=== PATIENT | female | born 1990 | race Caucasian/White ===

== ENCOUNTER → 2016-09-07 | Outpatient (CLI) | payer OTHER ==
[2016-09-07 13:30] LABS: CHCM 36.6; HCT 35.4 % (34.0-46.0); HDW 3.04; HGB 12.5 gm/dL (11.4-16.0); MCH 31.1 pg (25.0-35.0); MCHC 35.3 g/dL (31.0-37.0); MCV 87.9 fL (80.0-100.0); RBC 4.02 m/uL (3.80-5.40); RDW 12.8 % (11.5-15.5); WBC 8.4 k/uL (3.8-10.6)
[2016-09-07 13:59] LABS: Glucose 80 mg/dL (74-99); Non-African American GFR(MDRD) >60 (>60 ml/min/1.73 sqM)
--- NOTE | 2016-09-07 14:23 | US ---
EXAMINATION TYPE: US OB >= 14 wk fetus DATE OF EXAM: 09/07/2016 1:27 PM COMPARISON: None CLINICAL HISTORY: CONFIRM DATES Z36 TECHNIQUE: OBTA GESTATIONAL AGE / DATING Physician Established: not established Dates by LMP: (14 weeks/5 days) EDC: 03/03/2017 Dates by First Scan: [facility] Dates by Current Scan: (14 weeks/5 days) EDC: 02/28/2017 SURVEY IUP: Single PLACENTA: Posterior PREVIA: Marginal to complete previa, after voiding appears more marginal JUSTUS: 12.2 cm Normal CERVICAL LENGTH (transabdominal: norm > 3.0cm): 3.4 cm BIOMETRY PRESENTATION: Vertex LIE: Longitudinal BPD: 2.9 cm 15 weeks / 3 days HC: 10.9 cm 15 weeks / 2 days AC: 8.5 cm 14 weeks / 6 days FL: 1.6 cm 14 weeks / 6 days ESTIMATED WEIGHT IN GRAMS: 109 grams ESTIMATED WEIGHT IN LBS/OZS: 0 lbs. 4 oz. WEIGHT PERCENTAGE BASED ON ESTABLISHED DATES: 50% HC/AC: 1.3 Normal FL/AC: 19.4 Normal HEART RATE: 145 bpm RHYTHM: Normal IMPRESSION: Single viable intrauterine corresponding to ultrasound age 15 weeks 1 day with estimated da te of delivery one February 2017 by today's exam, the mid survey
[2016-09-07 14:29] LABS: Hepatitis B Surface Ag Index 0.06
[2016-09-08 06:53] LABS: Toxoplasma Antibody (IgG) <3.0 IU/mL (<7.2)
[2016-09-08 07:18] LABS: HIV-1/HIV-2 Ab Screen NONREAC (NON REAC)
== END | disposition home or self-care (01) ==
LOC: RADUSWWP 12:25
PROVIDERS: ATTEND Obstetrics & Gynecology
DX: Z36 Encounter for antenatal screening of mother (principal); O26.812 Pregnancy related exhaustion and fatigue, second trimester; Z3A.15 15 weeks gestation of pregnancy
CPT/HCPCS: 36415; 76805; 82565; 82947; 85027; 86762; 86777; 86778; 86780; 86850; 86900; 86901; 87340; 87389

== ENCOUNTER 2016-11-25 22:20 | Outpatient (CLI) | payer OTHER ==
[2016-11-25 22:52] LABS: Appearance,Urine Cloudy (Clear); Bacteria,Urine Many /hpf; Bilirubin,Urine Negative (Negative); Glucose,Urine (UA) Negative (Negative); Ketones,Urine Negative (Negative); Leukocyte Esterase,Urine Large (Negative); Nitrite,Urine Positive (Negative); PH, Urine 6.5 (5.0-8.0); Particle Count 8890; Protein,Urine Trace (Negative); RBC,Urine 10 /hpf (0-5); Specific Gravity,Urine 1.006 (1.001-1.035); Squamous Epithelial Cell,Urine 2 /hpf (0-4); UA Billing (MACRO vs. MICRO) MICRO; Urobilinogen,Urine <2.0 mg/dL (<2.0); WBC,Urine >182 /hpf (0-5)
[2016-11-25 23:04] VITALS: BP 119/82; PULSE 130; RESP 18; TEMP 98.6
[2016-11-25] MEDS: LACTATED RINGERS 1,000 ML IV SCH (23:30)
[2016-11-25 23:41] LABS: Basophils % (A) 0 %; CH 32.2; CHCM 35.6; Eosinophils % (A) 0 %; HCT 32.7 % (34.0-46.0); HDW 3.04; HGB 11.3 gm/dL (11.4-16.0); Luc % (Auto) 2; Lymphocytes # (A) 0.8 k/uL (1.0-4.8); Lymphocytes % (A) 7 %; MCH 31.5 pg (25.0-35.0); MCHC 34.6 g/dL (31.0-37.0); MCV 91.1 fL (80.0-100.0); Mean Platelet Volume 7.6; Monocytes # (A) 0.5 k/uL (0-1.0); Monocytes % (A) 4 %; Neutrophils # (A) 10.7 k/uL (1.3-7.7); Neutrophils % (A) 87 %; RDW 14.5 % (11.5-15.5); WBC 12.3 k/uL (3.8-10.6)
[2016-11-26] MEDS: LACTATED RINGERS 1,000 ML IV SCH (00:03)
--- NOTE | 2016-11-26 19:39 | P.MSEPDOC ---
Presenting Problems - Arrival Data Date of Arrival on Unit: 11/25/16 Time of Arrival on Unit: 22:16 Mode of Transport: Ambulatory - Complaint OB-Reason for Admission/Chief Complaint: Signs/Symptoms UTI Medical History - Information : 1 Para: 1 Term: 1 : 0 Abortions: Spontaneous or Elective: 0 Number of Living Children: 1 - Gestational Age Expected Date of Delivery: 02/28/17 Gestational Age by SALIMA (wks/days): 26 Weeks and 4 Days Review of Systems - Review of Systems Constitutional: No problems Breast: No problems ENT: No problems Cardiovascular: No problems Respiratory: No problems Gastrointestinal: No problems Genitourinary: Urgency, Increased frequency Musculoskeletal: No problems Neurological: No problems Skin: No problems Vital Signs - Temperature Temperature: 98.6 F Temperature Source: Oral - Pulse Pulse Oximetery Pulse Rate: 130 Pulse Assessment Method: Pulse Oximetry - Respirations Respiratory Rate: 18 Oxygen Delivery Method: Room Air O2 Sat by Pulse Oximetry: 100 - Blood Pressure Right Arm Blood Pressure: 119/82 Blood Pressure Mean: 94 Blood Pressure Source: Automatic Cuff Medical Screen Scoring (Pre) - Cervical Exam Dilation: Exam Deferred Effacement: Exam Deferred Membranes: Intact - Uterine Contractions Frequency: N/A Duration: N/A Intensity: N/A - Maternal Vital Signs Maternal Temperature: N/A Maternal Blood Pressure: N/A Signs of Preeclampsia: N/A Maternal Respirations: N/A - Maternal Trauma Maternal Trauma: N/A - Assessment Baseline FHR: 150 Heart Rate - NICHD Category: Category I (Normal) = 0 NST: Reactive Position: N/A Station: N/A - Total Score Total Score (Pre): 0 - Level of Risk Level of Risk: Low (0-5) Physician Notification (Pre) - Physician Notified Physician Notified Date: 11/25/16 Physician Notified Time: 23:04 Physician/Practitioner Notifed:: Dr Joao Watson Order Received: Yes - Notification Comment Comment: Obtain CBC, start IV LR and give fluid bolus. Medical Screen Scoring (Post) - Cervical Exam Dilation: Exam Deferred Effacement: Exam Deferred Membranes: Intact - Uterine Contractions Frequency: N/A Duration: N/A Intensity: N/A - Maternal Vital Signs Maternal Temperature: N/A Maternal Blood Pressure: N/A Signs of Preeclampsia: N/A Maternal Respirations: N/A - Maternal Trauma Maternal Trauma: N/A - Assessment Heart Rate: 150 Heart Rate - NICHD Category: Category I (Normal) = 0 NST: Reactive Position: N/A Station: N/A - Total Score Total Score (Post): 0 - Post Treatment Level of Risk Post Treatment Level of Risk: Low (0-5) Disposition - Disposition OB Disposition: Discharge to home Discharge Date: 11/26/16 Discharge Time: 00:39 I agree with the RN Medical Screening Exam: Yes Risk & Benefit of care provided described in d/c instruction: Yes Diagnosis: UNSP INFCT OF URINARY TRACT IN , SECOND TRIMESTER
== END 2016-11-26 00:42 | disposition home or self-care (01) ==
LOC: FBPOP 22:20
PROVIDERS: ATTEND Obstetrics & Gynecology
DX: O23.42 Unspecified infection of urinary tract in pregnancy, second trimester (principal); Z3A.26 26 weeks gestation of pregnancy
CPT/HCPCS: 96360; 85025; 81001; 87086; 87077; 87186; G0463; 99214

== ENCOUNTER 2017-03-08 07:12 | Inpatient (IN) | payer OTHER ==
[2017-03-08] MEDS ORDERED: CARBOPROST TROMETHAMINE 250 MCG/ML 1 ML AMP IM PRN (07:36)
[2017-03-08] MEDS ORDERED: METHYLERGONOVINE 0.2 MG/ML 1 ML AMP IM PRN (07:36)
[2017-03-08] MEDS ORDERED: OXYTOCIN 10 UNIT/ML 1 ML VIAL IM PRN (07:36)
[2017-03-08] MEDS ORDERED: LIDOCAINE 1% (PF) 10 MG/ML (30 ML SDV) SQ PRN (07:36)
[2017-03-08] MEDS ORDERED: TERBUTALINE 1 MG/ML VIAL SQ PRN (07:36)
[2017-03-08] MEDS ORDERED: LACTATED RINGERS 1,000 ML IV SCH (07:45)
[2017-03-08] MEDS ORDERED: OXYTOCIN 20 UNITS/1000 ML NS 1,000 ML IV SCH (07:45)
[2017-03-08] MEDS ORDERED: fentaNYL (PF) 50 MCG/ML 5 ML AMP ONE (08:00)
[2017-03-08] MEDS ORDERED: BUPIVACAINE (PF) 0.25% 30 ML VIAL ONE (08:00)
[2017-03-08] MEDS ORDERED: SODIUM CHLORIDE 0.9% 100 ML BAG ONE (08:00)
[2017-03-08 08:07] LABS: Basophils % (A) 0 %; CH 31.1; CHCM 34.8; Eosinophils # (A) 0.1 k/uL (0-0.7); Eosinophils % (A) 0 %; HCT 40.8 % (34.0-46.0); HDW 3.15; HGB 13.8 gm/dL (11.4-16.0); Luc # (Auto) 0.24; Luc % (Auto) 1; Lymphocytes # (A) 1.6 k/uL (1.0-4.8); Lymphocytes % (A) 9 %; MCH 30.3 pg (25.0-35.0); MCHC 33.8 g/dL (31.0-37.0); MCV 89.7 fL (80.0-100.0); Mean Platelet Volume 8.3; Monocytes # (A) 0.6 k/uL (0-1.0); Monocytes % (A) 3 %; Neutrophils # (A) 15.5 k/uL (1.3-7.7); Neutrophils % (A) 86 %; RBC 4.55 m/uL (3.80-5.40); RDW 14.4 % (11.5-15.5); WBC (Perox) 17.41
[2017-03-08] MEDS: LACTATED RINGERS 1,000 ML IV SCH ×2 (08:31→22:11)
[2017-03-08 09:08] VITALS: BMI 23.8
[2017-03-08] MEDS ORDERED: BENZOCAINE/MENTHOL SPRAY 1 GM/SPRAY AEROSOL TOPICAL PRN ×2 (11:08→11:52)
[2017-03-08] MEDS ORDERED: IBUPROFEN 600 MG TAB PO PRN (11:08)
[2017-03-08] MEDS ORDERED: diphenhydrAMINE 50 MG/ML 1 ML VIAL IVP PRN ×4 (11:08→11:52)
[2017-03-08] MEDS ORDERED: ACETAMINOPHEN TAB 325 MG TAB PO PRN ×2 (11:08→11:52)
[2017-03-08] MEDS ORDERED: SIMETHICONE 80 MG CHEWABLE PO PRN ×2 (11:08→11:52)
[2017-03-08] MEDS ORDERED: ZOLPIDEM 5 MG TAB PO PRN ×2 (11:08→11:52)
[2017-03-08] MEDS ORDERED: LANOLIN CREAM 5 GM TUBE TOPICAL PRN ×2 (11:08→11:52)
[2017-03-08] MEDS ORDERED: WITCH HAZEL 1 EACH MED..PAD TOPICAL PRN ×2 (11:08→11:52)
[2017-03-08] MEDS ORDERED: HYDROCORTISONE 2.5% RECTAL CREAM 30 GM TUBE RECTAL PRN ×2 (11:08→11:52)
[2017-03-08] MEDS ORDERED: diphenhydrAMINE 50 MG CAP PO PRN ×2 (11:08→11:52)
[2017-03-08] MEDS ORDERED: MEASLES-MUMPS-RUBELLA VACC/PF 12,500 UNIT/0.5 ML VIAL SQ ONE (11:08)
[2017-03-08] MEDS ORDERED: diphenhydrAMINE 25 MG CAP PO PRN ×2 (11:08→11:52)
--- NOTE | 2017-03-08 11:12 | P.HPOB ---
History of Present Illness H&P Date: 03/08/17 Steffi is a 18-year-old at 40 weeks gestation arrives in active labor. She is garcia every 2 minutes and she is making cervical change. At this time she is 40 cm dilated her percent effaced -2 station. Her course was, K by a grade 3 placenta but otherwise she had no other significant problems with the area and she is watched with nonstress tests through the latter part of the due to same. Pertinent labs include O + blood type Rh and it was negative. Rubella was nonimmune, hepatitis B surface antigen and RPR as well as HIV were all negative. On physical exam this is a well-developed well-nourished female whose HEENT is unremarkable. Heart regular, lungs clear, extremities without pain. Abdomen is soft gravid uterus is noted. heart tones in the 130s to 140s and have been reactive. It is noted that during the labor process she did have spontaneous rupture membranes and thick meconium is noted therefore anesthesia will be present at the time of delivery. She plans epidural for analgesia. Assessment intrauterine at term. Plan expect spontaneous vaginal delivery. Past Medical History Past Medical History: No Reported History History of Any Multi-Drug Resistant Organisms: None Reported Additional Past Surgical History / Comment(s): ovarian cyst removed, benign tumor on foot Past Anesthesia/Blood Transfusion Reactions: Postoperative Nausea & Vomiting ( PONV) Past Psychological History: No Psychological Hx Reported Smoking Status: Never smoker Past Alcohol Use History: None Reported Past Drug Use History: None Reported - Past Family History Father History Unknown: Yes Medications and Allergies Home Medications Medication Instructions Recorded Confirmed Type Pnv No.95/Ferrous Fum/Folic AC 1 tab PO DAILY 11/25/16 03/08/17 History [ Multivitamin Tablet] Allergies Allergy/AdvReac Type Severity Reaction Status Date / Time Penicillins Allergy Unknown Verified 03/08/17 07:34 Childhood Exam Osteopathic Statement: *. No significant issues noted on an osteopathic structural exam other than those noted in the History and Physical/Consult. - Vital Signs Vital signs: Vital Signs Temp Pulse Resp BP 03/08/17 07:34 97.2 F L 82 18 129/82 Intake and Output 03/07/17 03/08/17 03/08/17 22:59 06:59 14:59 Other: # Voids 1 Weight 58.967 kg Patient Weight 11/10/17 06:59 Weight 58.967 kg Results Result Diagrams: 03/08/17 07:40 Abnormal Lab Results - Last 24 Hours (Table) 03/08/17 Range/Units 07:40 WBC 18.0 H (3.8-10.6) k/uL Neutrophils # 15.5 H (1.3-7.7) k/uL
--- NOTE | 2017-03-08 11:13 | P.PROBDLV ---
Vaginal Delivery Note - . Vaginal Delivery Note: Patient progressed to complete and pushing with spontaneous vaginal delivery of a viable male over an intact perineum. Following delivery of the head the head did retract back on the perineum indicating likely shoulder dystocia with gentle Downward traction and Lauren was to dislodge the anterior shoulder from below the pubic symphysis. Therefore did go into the vagina and grasped under the right axilla as the baby was delivered from right occiput anterior position. Once I was able to grasp onto the axilla I was able to rotate the baby slightly clockwise fashion allowing for the anterior shoulder dislodged there was a nuchal cord 1 noted this point the baby was delivered through the nuchal cord. Once baby was delivered thorough bulb suction of mouth and nares was completed and baby was then placed on mother's abdomen where the umbilical cord was clamped and cut in usual fashion and handed over to nursery personnel with anesthesia present. Placenta was then delivered intact and Pitocin was added to the IV. scores and weight are both pending at this time but both mother and baby currently appear stable following delivery.
[2017-03-08] MEDS: IBUPROFEN 600 MG TAB PO PRN (12:35)
[2017-03-08] MEDS ORDERED: INFLUENZA VACCINE (6 MOS+) 60 MCG/0.5 ML SYRINGE IM ONE (13:46)
[2017-03-08] MEDS: Acetaminophen-Codeine 300-30mg TAB PO PRN ×2 (15:57→21:14)
[2017-03-08] MEDS ORDERED: SENNOSIDES-DOCUSATE SODIUM 1 EACH TAB PO SCH (20:00)
[2017-03-08] MEDS: SENNOSIDES-DOCUSATE SODIUM 1 EACH TAB PO SCH (21:13)
[2017-03-09] MEDS: Acetaminophen-Codeine 300-30mg TAB PO PRN ×3 (07:00→20:00)
--- NOTE | 2017-03-09 08:53 | P.DS ---
Providers Date of admission: 03/08/17 07:31 Expected date of discharge: 03/09/17 Attending physician: Shimon Zimmerman [facility] Course: Steffi is doing very well post day 1. She is ambulating, voiding, and she is tolerating her diet. She voices no complaints. Vital signs are stable and afebrile. Heart regular, lungs clear, extremities without pain. Abdomen is soft uterus is firm and lochia is reported to be light. Assessment day 1. Plan discharged home follow up with me in 6 weeks. Prescription for Tylenol No. 3 and Motrin have been provided and all questions are answered. Discharge instructions thoroughly reviewed. Patient Condition at Discharge: Good Plan - Discharge Summary New Discharge Prescriptions: New Acetaminophen-Codeine 300-30mg [Tylenol #3] 1 tab PO Q4H PRN #30 tablet PRN Reason: Pain Ibuprofen [Motrin] 600 mg PO Q6HR PRN #30 tab PRN Reason: Pain No Action Pnv No.95/Ferrous Fum/Folic AC [ Multivitamin Tablet] 1 tab PO DAILY Discharge Medication List Pnv No.95/Ferrous Fum/Folic AC [ Multivitamin Tablet] 1 tab PO DAILY [History] Acetaminophen-Codeine 300-30mg [Tylenol #3] 1 tab PO Q4H PRN #30 tablet [Rx] Ibuprofen [Motrin] 600 mg PO Q6HR PRN #30 tab 03/09/17 [Rx] Follow up Appointment(s)/Referral(s): Shimon Zimmerman DO [Doctor of Osteopathic Medicine] - 6 Weeks Activity/Diet/Wound Care/Special Instructions: Pelvic rest, no heavy lifting, limit stairs and driving. If any high temperatures, heavy bleeding, or severe pain call my office Discharge Disposition: HOME SELF-CARE
[2017-03-09] MEDS: IBUPROFEN 600 MG TAB PO PRN ×2 (10:38→17:18)
[2017-03-09] MEDS: SENNOSIDES-DOCUSATE SODIUM 1 EACH TAB PO SCH ×2 (10:38→20:55)
--- NOTE | 2017-03-10 07:16 | P.PNOBGVD ---
Subjective - Subjective Patient reports: Reports appetite normal, Reports voiding normally, Reports pain well controlled, Reports ambulating normally : doing well Objective - Latest Vital Signs Latest vital signs: Vital Signs Temp Pulse Resp BP 03/10/17 00:00 98 F 67 15 115/76 03/09/17 15:47 97.9 F 71 17 112/81 03/09/17 14:07 98.6 F 73 16 122/71 03/09/17 09:00 98.3 F 80 16 114/65 03/09/17 08:52 80 16 - Exam Lungs: bilateral: normal Chest: Normal S1, Normal S2 Extremities: Present: normal Abdomen: Present: normal appearance, soft Uterus: Present: normal, firm Assessment and Plan Assessment: This is day #2. Patient was going to go home yesterday but decided to stay because her baby needed to be admitted for observation due to possible aspiration following his circumcision. Both are doing better today and patient is felt to be stable for discharge home. She'll follow-up with Dr. Zimmerman as scheduled in 6 weeks. (1) Vaginal delivery Current Visit: Yes Status: Acute Code(s): O80 - ENCOUNTER FOR FULL-TERM UNCOMPLICATED DELIVERY SNOMED Code(s): 140407393
[2017-03-10] MEDS: Acetaminophen-Codeine 300-30mg TAB PO PRN ×3 (08:59→18:33)
[2017-03-10] MEDS: SENNOSIDES-DOCUSATE SODIUM 1 EACH TAB PO SCH (11:01)
[2017-03-10 17:22] VITALS: BP 115/72; PULSE 82; RESP 18; TEMP 97.9
== END 2017-03-10 18:39 | disposition home or self-care (01) | DRG 560 ==
LOC: FBPOP 07:12 → 4FBP 07:31
PROVIDERS: ADMIT Obstetrics & Gynecology; ATTEND Obstetrics & Gynecology
PROC: 3E0R3BZ Introduction of Anesthetic Agent into Spinal Canal, Percutaneous Approach (ICD-10-PCS; principal; 2017-03-08)
PROC: 00HU33Z Insertion of Infusion Device into Spinal Canal, Percutaneous Approach (ICD-10-PCS; principal; 2017-03-08)
PROC: 10E0XZZ Delivery of Products of Conception, External Approach (ICD-10-PCS; principal; 2017-03-08)
DX: O48.0 Post-term pregnancy (principal); O77.0 Labor and delivery complicated by meconium in amniotic fluid; Z37.0 Single live birth; Z3A.40 40 weeks gestation of pregnancy; Z88.0 Allergy status to penicillin; O69.81X0 Labor and delivery complicated by cord around neck, without compression, not applicable or unspecified; O66.0 Obstructed labor due to shoulder dystocia
CPT/HCPCS: 85025; 88307; 90686; 90707

== ENCOUNTER 2017-03-14 12:03 | Emergency (ER) | payer OTHER ==
[2017-03-14] MEDS ORDERED: SODIUM CHLORIDE 0.9% 500 ML IV STA (12:43)
[2017-03-14] MEDS ORDERED: RX INFO: IV CONTRAST WAS GIVEN 1 EACH MISC MISCELLANE PRN (12:43)
--- NOTE | 2017-03-14 12:45 | ED ---
General Adult HPI - General Chief complaint: Abdominal Pain Stated complaint: PAIN ON LEFT SIDE POST DELIVERY Time Seen by Provider: 03/14/17 12:30 Source: patient, RN notes reviewed Mode of arrival: ambulatory Limitations: no limitations - History of Present Illness Initial comments: 18-year-old female presents to the emergency department with a chief complaint of left sided lower abdominal pain started last night. She states the bumps in the car her on the way here. Whenever she coughs she feels pain in her abdomen as well. She states that it was not tender to touch. She denies any changes in her vaginal bleeding and states it is getting better. She denies any fever or chills with this. She states that she was concerned due to her continued pain so she thought that she should be evaluated. Patient states that she has had a little bit of dysuria associated WITH contributing to it. She was concerned because the pain just seems to be continuing so she thought that she should be seen. Patient denies any recent fever, chills, shortness of breath, chest pain, back pain, nausea vomiting, numbness or tingling, dysuria or hematuria, constipation or diarrhea, headaches or visual changes, or any other current symptoms. - Related Data Home Medications Medication Instructions Recorded Confirmed Pnv No.95/Ferrous Fum/Folic AC 1 tab PO DAILY 11/25/16 03/14/17 [ Multivitamin Tablet] Previous Rx's Medication Instructions Recorded Acetaminophen-Codeine 300-30mg 1 tab PO Q4H PRN #30 tablet 03/09/17 [Tylenol #3] Ibuprofen [Motrin] 600 mg PO Q6HR PRN #30 tab 03/09/17 Ciprofloxacin HCl [Cipro] 500 mg PO Q12HR #14 tablet 03/14/17 Allergies Allergy/AdvReac Type Severity Reaction Status Date / Time Penicillins Allergy Unknown Verified 03/14/17 12:36 Childhood Review of Systems ROS Statement: Those systems with pertinent positive or pertinent negative responses have been documented in the HPI. ROS Other: All systems not noted in ROS Statement are negative. Past Medical History Past Medical History: No Reported History History of Any Multi-Drug Resistant Organisms: None Reported Additional Past Surgical History / Comment(s): ovarian cyst removed, benign tumor on foot Past Anesthesia/Blood Transfusion Reactions: Postoperative Nausea & Vomiting ( PONV) Past Psychological History: No Psychological Hx Reported Smoking Status: Never smoker Past Alcohol Use History: None Reported Past Drug Use History: None Reported - Past Family History Father History Unknown: Yes General Exam - General Exam Comments Initial Comments: General: The patient is awake and alert, in no distress, and does not appear acutely ill. Eye: Pupils are equal, round and reactive to light, extra-ocular movements are intact; there is normal conjunctiva bilaterally. No signs of icterus. Ears, nose, mouth and throat: There are moist mucous membranes. Neck: The neck is supple, there is no tenderness. Cardiovascular: There is a regular rate and rhythm. No murmur, rub or gallop is appreciated. Respiratory: Lungs are clear to auscultation, respirations are non-labored, breath sounds are equal. No wheezes, stridor, rales, or rhonchi. Gastrointestinal: Soft, non-distended, non-tender abdomen without masses or organomegaly noted. There is no rebound or guarding present. No CVA tenderness. Bowel sounds are unremarkable. Back: There is no tenderness to palpation in the midline. There is no obvious deformity. No rashes noted. Musculoskeletal: Normal ROM, no tenderness, There is no pedal edema. There is no calf tenderness or swelling. Sensation intact. Pulses equal bilaterally 2+. Neurological: CN II-XII intact, There are no obvious motor or sensory deficits. Coordination appears grossly intact. Speech is normal. Skin: Skin is warm and dry and no rashes or lesions are noted. Psychiatric: Cooperative, appropriate mood & affect, normal judgment. Limitations: no limitations Course Vital Signs 03/14/17 03/14/17 12:24 13:29 Temperature 99.1 F 97.8 F Pulse Rate 110 H 99 Respiratory 18 16 Rate Blood Pressure 121/83 123/82 O2 Sat by Pulse 96 96 Oximetry Medical Decision Making - Medical Decision Making 26-year-old female presents for left-sided abdominal pain. She is post vaginal delivery on the . At this time the patient does appear to have acute pyelonephritis. Rocephin was given here we will start her on antibiotics for home. She is not currently breast-feeding. We did discuss all questions and follow-up. She stated that she understood and she is negative this plan. She will be discharged. - Lab Data Result diagrams: 03/14/17 12:55 03/14/17 12:55 Lab Results 03/14/17 03/14/17 03/14/17 Range/Units 12:00 12:55 12:55 WBC 13.5 H (3.8-10.6) k/uL RBC 4.01 (3.80-5.40) m/uL Hgb 11.9 (11.4-16.0) gm/dL Hct 35.5 (34.0-46.0) % MCV 88.5 (80.0-100.0) fL MCH 29.5 (25.0-35.0) pg MCHC 33.4 (31.0-37.0) g/dL RDW 14.7 (11.5-15.5) % Plt Count 415 (150-450) k/uL Neutrophils % 85 % Lymphocytes % 9 % Monocytes % 4 % Eosinophils % 1 % Basophils % 1 % Neutrophils # 11.4 H (1.3-7.7) k/uL Lymphocytes # 1.2 (1.0-4.8) k/uL Monocytes # 0.5 (0-1.0) k/uL Eosinophils # 0.1 (0-0.7) k/uL Basophils # 0.1 (0-0.2) k/uL Sodium 139 (137-145) mmol/L Potassium 3.9 (3.5-5.1) mmol/L Chloride 105 (98-107) mmol/L Carbon Dioxide 25 (22-30) mmol/L Anion Gap 9 mmol/L BUN 10 (7-17) mg/dL Creatinine 0.64 (0.52-1.04) mg/dL Est GFR (MDRD) Af Amer >60 (>60 ml/min/1.73 sqM) Est GFR (MDRD) Non-Af >60 (>60 ml/min/1.73 sqM) Glucose 117 H (74-99) mg/dL Calcium 9.0 (8.4-10.2) mg/dL Total Bilirubin 0.2 (0.2-1.3) mg/dL AST 17 (14-36) U/L ALT 23 (9-52) U/L Alkaline Phosphatase 136 H (38-126) U/L Total Protein 6.5 (6.3-8.2) g/dL Albumin 3.3 L (3.5-5.0) g/dL Amylase <30 L (30-110) U/L Lipase 30 (23-300) U/L Urine Color Light Yellow Urine Appearance Cloudy H (Clear) Urine pH 6.0 (5.0-8.0) Ur Specific Agate 1.009 (1.001-1.035) Urine Protein Negative (Negative) Urine Glucose (UA) Negative (Negative) Urine Ketones Negative (Negative) Urine Blood Moderate H (Negative) Urine Nitrite Positive H (Negative) Urine Bilirubin Negative (Negative) Urine Urobilinogen <2.0 (<2.0) mg/dL Ur Leukocyte Esterase Large H (Negative) Urine RBC 2 (0-5) /hpf Urine WBC 66 H (0-5) /hpf Urine WBC Clumps Many H (None) /hpf Ur Squamous Epith Cells 1 (0-4) /hpf Urine Bacteria Moderate H (None) /hpf Urine Mucus Rare H (None) /hpf Disposition Clinical Impression: Acute pyelonephritis Disposition: HOME SELF-CARE Condition: Stable Instructions: Kidney Infection (ED) Additional Instructions: Please use medication as discussed. Please follow up with family doctor if symptoms have not improved over the next two days. Please return to the emergency room if your symptoms increase or worsen or for any other concerns. Prescriptions: Ciprofloxacin HCl [Cipro] 500 mg PO Q12HR #14 tablet Referrals: Bell Waters MD [STAFF PHYSICIAN] - 1-2 days Time of Disposition: 13:45
[2017-03-14 13:04] LABS: Basophils # (A) 0.1 k/uL (0-0.2); Basophils % (A) 1 %; CH 29.7; CHCM 33.7; Eosinophils # (A) 0.1 k/uL (0-0.7); Eosinophils % (A) 1 %; HCT 35.5 % (34.0-46.0); HDW 2.77; HGB 11.9 gm/dL (11.4-16.0); Luc # (Auto) 0.12; Luc % (Auto) 1; Lymphocytes # (A) 1.2 k/uL (1.0-4.8); Lymphocytes % (A) 9 %; MCH 29.5 pg (25.0-35.0); MCHC 33.4 g/dL (31.0-37.0); MCV 88.5 fL (80.0-100.0); Mean Platelet Volume 7.7; Monocytes # (A) 0.5 k/uL (0-1.0); Monocytes % (A) 4 %; Neutrophils # (A) 11.4 k/uL (1.3-7.7); Neutrophils % (A) 85 %; RBC 4.01 m/uL (3.80-5.40); RDW 14.7 % (11.5-15.5); WBC 13.5 k/uL (3.8-10.6); WBC (Perox) 14.14
[2017-03-14 13:14] LABS: ALT 23 U/L (9-52); AST 17 U/L (14-36); Alkaline Phosphatase 136 U/L (38-126); Amylase <30 U/L (30-110); Anion Gap 9 mmol/L; Blood Urea Nitrogen 10 mg/dL (7-17); Carbon Dioxide 25 mmol/L (22-30); Chloride 105 mmol/L (98-107); Glucose 117 mg/dL (74-99); Non-African American GFR(MDRD) >60 (>60 ml/min/1.73 sqM); Potassium 3.9 mmol/L (3.5-5.1); Sodium 139 mmol/L (137-145); Total Bilirubin 0.2 mg/dL (0.2-1.3); Total Protein 6.5 g/dL (6.3-8.2)
[2017-03-14 13:16] LABS: Appearance,Urine Cloudy (Clear); Bacteria,Urine Moderate /hpf; Bilirubin,Urine Negative (Negative); Glucose,Urine (UA) Negative (Negative); Ketones,Urine Negative (Negative); Leukocyte Esterase,Urine Large (Negative); Mucus,Urine Rare /hpf; Nitrite,Urine Positive (Negative); Particle Count 36670; Protein,Urine Negative (Negative); RBC,Urine 2 /hpf (0-5); Specific Gravity,Urine 1.009 (1.001-1.035); Squamous Epithelial Cell,Urine 1 /hpf (0-4); UA Billing (MACRO vs. MICRO) MICRO; Urobilinogen,Urine <2.0 mg/dL (<2.0); WBC,Urine 66 /hpf (0-5)
[2017-03-14 13:30] VITALS: BP 123/82; PULSE 99; RESP 16; TEMP 97.8
[2017-03-14] MEDS ORDERED: cefTRIAXone IN SWFI 1,000 MG/10 ML SYRINGE IVP ONE (13:30)
[2017-03-14] MEDS ORDERED: KETOROLAC 30 MG/ML 1 ML VIAL IVP STA (13:44)
[2017-03-14] MEDS ORDERED: cefTRIAXone IN SWFI 2,000 MG/20 ML SYRINGE IVP ONE (13:45)
== END 2017-03-14 14:12 | disposition home or self-care (01) ==
LOC: EC 12:03
DX: O86.21 Infection of kidney following delivery (principal); N10 Acute pyelonephritis; Z53.8 Procedure and treatment not carried out for other reasons; Z88.0 Allergy status to penicillin; Z79.899 Other long term (current) drug therapy
CPT/HCPCS: 99284; 96374; 96375; 36415; 80053; 82150; 83690; 85025; 81001; 87086; J0696; J1885; 87077; 87186

== ENCOUNTER → 2018-05-25 | Outpatient (CLI) | payer OTHER ==
[2018-05-26 00:28] LABS: Amorphous Sediment,Urine Occasional /hpf; Bacteria,Urine Rare /hpf; WBC,Urine 5 /hpf (0-5)
[2018-05-26 00:34] LABS: Appearance,Urine Cloudy (Clear); Bilirubin,Urine Negative (Negative); Blood,Urine Negative (Negative); Color,Urine Yellow; Glucose,Urine (UA) Negative (Negative); Ketones,Urine Negative (Negative); Leukocyte Esterase,Urine Small (Negative); Nitrite,Urine Positive (Negative); PH, Urine 6.5 (5.0-8.0); Protein,Urine Negative (Negative); Specific Gravity,Urine 1.015 (1.001-1.035); Urobilinogen,Urine <2.0 mg/dL (<2.0)
[2018-05-26 05:15] LABS: Basophils % (A) 0 %; Eosinophils # (A) 0.1 k/uL (0-0.7); Eosinophils % (A) 1 %; HCT 29.4 % (34.0-46.0); HGB 10.1 gm/dL (11.4-16.0); Lymphocytes # (A) 1.1 k/uL (1.0-4.8); Lymphocytes % (A) 13 %; MCH 31.1 pg (25.0-35.0); MCHC 34.4 g/dL (31.0-37.0); MCV 90.5 fL (80.0-100.0); Mean Platelet Volume 6.8; Monocytes # (A) 0.3 k/uL (0-1.0); Monocytes % (A) 3 %; Neutrophils # (A) 7.3 k/uL (1.3-7.7); Neutrophils % (A) 82 %; Platelet Count 305 k/uL (150-450); RBC 3.25 m/uL (3.80-5.40); RDW 13.7 % (11.5-15.5)
--- NOTE | 2018-05-26 10:07 | US ---
EXAMINATION TYPE: US OB >= 14 wk fetus DATE OF EXAM: 05/25/2018 COMPARISON: None CLINICAL HISTORY: PAIN Bleeding after intercourse TECHNIQUE: Transabdominal (TA) GESTATIONAL AGE / DATING Physician Established: Not yet established Dates by LMP: LMP unknown Dates by First Scan: Done at another facility Dates by Current Scan: (19 weeks/5 days) EDC: 10/14/2018 SURVEY IUP: Single PLACENTA: Posterior PREVIA: No Previa JUSTUS: 12.4 cm Normal CERVICAL LENGTH (transabdominal: norm > 3.0cm): 3.2 cm BIOMETRY PRESENTATION: Breech LIE: Longitudinal BPD: 4.7 cm 20 weeks / 1 days HC: 17.4 cm 20 weeks / 0 days AC: 14.6 cm 19 weeks / 6 days FL: 3.1 cm 19 weeks / 5 days ESTIMATED WEIGHT IN GRAMS: 317.92 grams ESTIMATED WEIGHT IN LBS/OZ: 0 lbs. 11 oz. HC/AC: 1.19 Normal FL/AC: 21.47 Normal HEART RATE: 148 bpm RHYTHM: Normal Viable IUP with an SALIMA of 10/14/2018 by this exam. Echogenic debris visualized with the bladder. IMPRESSION: GAYTAN FETUS PRESENT IN A BREECH PRESENTATION WITH A GESTATIONAL AGE OF 19 WEEKS 5 DAYS +/- 10 DAY S. EXPECTED DATE OF CONFINEMENT BASED ON THIS EXAMINATION IS 10/14/2018.
[2018-05-26 11:58] LABS: ALT 20 U/L (9-52); AST 13 U/L (14-36); Alkaline Phosphatase 54 U/L (38-126); Anion Gap 3 mmol/L; Blood Urea Nitrogen 6 mg/dL (7-17); Calcium 8.6 mg/dL (8.4-10.2); Carbon Dioxide 26 mmol/L (22-30); Chloride 107 mmol/L (98-107); Glucose 71 mg/dL (74-99); Potassium 4.1 mmol/L (3.5-5.1); Sodium 136 mmol/L (137-145); Total Bilirubin 0.4 mg/dL (0.2-1.3); Total Protein 5.7 g/dL (6.3-8.2)
== END ==
LOC: FBPOP 12:04
PROVIDERS: ATTEND Obstetrics & Gynecology
DX: O46.92 Antepartum hemorrhage, unspecified, second trimester (principal); Z3A.21 21 weeks gestation of pregnancy; O26.892 Other specified pregnancy related conditions, second trimester; R35.0 Frequency of micturition; R10.10 Upper abdominal pain, unspecified
CPT/HCPCS: 80053; 85025; 81001; 87086; 87077; 87186; 76805; G0463; 99213

== ENCOUNTER 2018-09-04 19:55 | Outpatient (CLI) | payer OTHER ==
[2018-09-04 20:38] VITALS: BP 130/75; PULSE 79; RESP 16; TEMP 97.1
--- NOTE | 2018-09-05 08:25 | P.MSEPDOC ---
Presenting Problems - Arrival Data Date of Arrival on Unit: 09/04/18 Time of Arrival on Unit: 19:55 Mode of Transport: Ambulatory - Complaint OB-Reason for Admission/Chief Complaint: Other Comment: bleeding r/t hemorroids Medical History - Information : 3 Para: 2 Term: 2 : 0 Abortions: Spontaneous or Elective: 0 Number of Living Children: 2 - Gestational Age Gestational Age by SALIMA (wks/days): 34 Weeks and 2 Days Review of Systems - Review of Systems Constitutional: No problems Breast: No problems ENT: No problems Cardiovascular: No problems Respiratory: No problems Gastrointestinal: No problems Genitourinary: No problems Musculoskeletal: No problems Neurological: No problems Skin: No problems Vital Signs - Temperature Temperature: 97.1 F Temperature Source: Temporal Artery Scan - Pulse Right Brachial Pulse Rate: 79 Pulse Assessment Method: Automatic Cuff - Respirations Respiratory Rate: 16 Oxygen Delivery Method: Room Air O2 Sat by Pulse Oximetry: 100 - Blood Pressure Right Arm Blood Pressure: 130/75 Blood Pressure Mean: 93 Blood Pressure Source: Automatic Cuff Medical Screen Scoring (Pre) - Cervical Exam Dilation: Exam Deferred Effacement: Exam Deferred Membranes: Intact - Uterine Contractions Frequency: N/A Duration: N/A Intensity: N/A - Maternal Vital Signs Maternal Temperature: N/A Maternal Blood Pressure: N/A Signs of Preeclampsia: N/A Maternal Respirations: N/A - Pain Assessment Pain Scale Used: Numeric (1 - 10) Pain Intensity: 0 - Maternal Trauma Maternal Trauma: N/A - Assessment Baseline FHR: 145 Heart Rate - NICHD Category: Category I (Normal) = 0 NST: Reactive Position: N/A Station: N/A - Total Score Total Score (Pre): 0 - Level of Risk Level of Risk: Low (0-5) Physician Notification (Pre) - Physician Notified Physician Notified Date: 09/04/18 Physician Notified Time: 20:24 Physician/Practitioner Notifed:: Dr. Bingham Spoke With: Dr. Bingham New Order Received: Yes - Notification Comment Comment: Dr. Bingham called and given report on pt in tr. Pt c/o. VS wnl. No visible bleeding vaginally or rectally noted per RN. Reactive nst. No contractions noted per pt or toco. Orders recieved to d/c pt to home. Disposition - Disposition OB Disposition: Discharge to home Discharge Date: 09/04/18 Discharge Time: 20:38 I agree with the RN Medical Screening Exam: Yes Risk & Benefit of care provided described in d/c instruction: Yes Diagnosis: HEMORRHOIDS IN , THIRD TRIMESTER
== END 2018-09-04 20:38 | disposition home or self-care (01) ==
LOC: FBPOP 19:55
PROVIDERS: ATTEND Obstetrics & Gynecology
DX: O22.43 Hemorrhoids in pregnancy, third trimester (principal); Z3A.34 34 weeks gestation of pregnancy
CPT/HCPCS: 59025; G0463; 99213

== ENCOUNTER 2018-10-02 22:16 | Inpatient (IN) | payer OTHER ==
[2018-10-02] MEDS ORDERED: OXYTOCIN 10 UNIT/ML 1 ML VIAL IM PRN (22:40)
[2018-10-02] MEDS ORDERED: CARBOPROST TROMETHAMINE 250 MCG/ML 1 ML AMP IM PRN (22:40)
[2018-10-02] MEDS ORDERED: METHYLERGONOVINE 0.2 MG/ML 1 ML AMP IM PRN (22:40)
[2018-10-02] MEDS ORDERED: LIDOCAINE 0.5% (PF) 5 MG/ML (50 ML SDV) SQ PRN (22:40)
[2018-10-02] MEDS ORDERED: CLINDAMYCIN 900 MG in DEXTROSE 5% IN WATER 50 ML IVPB STA ×2 (22:40)
[2018-10-02] MEDS ORDERED: TERBUTALINE 1 MG/ML VIAL SQ PRN (22:40)
[2018-10-02] MEDS ORDERED: LACTATED RINGERS 1,000 ML IV SCH ×2 (22:45)
[2018-10-02] MEDS ORDERED: ROPIVACAINE 5MG/ML 20ML VIAL ONE (22:48)
[2018-10-02] MEDS ORDERED: fentaNYL (PF) 50 MCG/ML 5 ML AMP ONE (22:48)
[2018-10-02] MEDS ORDERED: SODIUM CHLORIDE 0.9% 100 ML BAG ONE (22:48)
[2018-10-02 22:54] LABS: Basophils % (A) 0 %; Eosinophils # (A) 0.2 k/uL (0-0.7); Eosinophils % (A) 1 %; HGB 12.5 gm/dL (11.4-16.0); Lymphocytes # (A) 1.7 k/uL (1.0-4.8); Lymphocytes % (A) 10 %; MCH 28.9 pg (25.0-35.0); MCV 87.8 fL (80.0-100.0); Mean Platelet Volume 8.1; Monocytes # (A) 0.6 k/uL (0-1.0); Monocytes % (A) 4 %; Neutrophils # (A) 13.2 k/uL (1.3-7.7); Neutrophils % (A) 83 %; Platelet Count 257 k/uL (150-450); RBC 4.33 m/uL (3.80-5.40); RDW 14.7 % (11.5-15.5); WBC 15.9 k/uL (3.8-10.6)
[2018-10-02] MEDS ORDERED: ROPIVACAINE 100 MG, fentaNYL (PF) 200 MCG in SODIUM CHLORIDE 0.9% 76 ML EPIDURAL ONE (23:15)
--- NOTE | 2018-10-02 23:27 | P.HPOB ---
History of Present Illness H&P Date: 10/02/18 Chief Complaint: PROM 28 year old presents 38 weeks 2 days with spontaneous rupture of membranes more than 24 hours ago. She is grossly ruptured with meconium stained fluid. Her cervix is 5/80/2 and she is garcia every 2 - 5 minutes. heart tones 145 with moderate variability. Review of Systems All systems: negative Constitutional: Denies chills, Denies fever Eyes: denies blurred vision, denies pain Ears, nose, mouth and throat: Denies headache, Denies sore throat Cardiovascular: Denies chest pain, Denies shortness of breath Respiratory: Denies cough Gastrointestinal: Denies abdominal pain, Denies diarrhea, Denies nausea, Denies vomiting Genitourinary: Denies dysuria, Denies hematuria Musculoskeletal: Denies myalgias Integumentary: Denies pruritus, Denies rash Neurological: Denies numbness, Denies weakness Psychiatric: Denies anxiety, Denies depression Endocrine: Denies fatigue, Denies weight change Past Medical History Past Medical History: No Reported History Additional Past Medical History / Comment(s): OB history: She has had 2 vaginal deliveries. O+, abs neg, Rub Imm, RPR NR, Hep B neg, HIV NR. GBS neg. History of Any Multi-Drug Resistant Organisms: None Reported Additional Past Surgical History / Comment(s): ovarian cyst removed, benign tumor on foot Past Anesthesia/Blood Transfusion Reactions: Postoperative Nausea & Vomiting (PONV) Smoking Status: Never smoker - Past Family History Father History Unknown: Yes Medications and Allergies Home Medications Medication Instructions Recorded Confirmed Type Pnv No.95/Ferrous Fum/Folic AC 1 tab PO DAILY 11/25/16 10/02/18 History [ Multivitamin Tablet] Allergies Allergy/AdvReac Type Severity Reaction Status Date / Time Penicillins Allergy Unknown Verified 10/02/18 22:19 Childhood Exam Osteopathic Statement: *. No significant issues noted on an osteopathic structural exam other than those noted in the History and Physical/Consult. Intake and Output 10/02/18 10/02/18 10/03/18 14:59 22:59 06:59 Other: Weight 58.967 kg HEart: RRR Lungs: CTAB ABdomen: soft, nontender Extremeties: neg isabella's Results Result Diagrams: 10/02/18 22:38 Abnormal Lab Results - Last 24 Hours (Table) 10/02/18 Range/Units 22:38 WBC 15.9 H (3.8-10.6) k/uL Neutrophils # 13.2 H (1.3-7.7) k/uL Assessment and Plan (1) Prolonged rupture of membranes Current Visit: Yes Status: Acute Code(s): O42.90 - NAMRATA ROM, 7TH0 BETW RUPT & ONST LABR, UNSP WEEKS OF GEST SNOMED Code(s): 682621392 (2) Normal labor Current Visit: Yes Status: Acute Code(s): O80 - ENCOUNTER FOR FULL-TERM UNCOMPLICATED DELIVERY; Z37.9 - OUTCOME OF DELIVERY, UNSPECIFIED SNOMED Code(s): 32686190 Plan: 1. admit to [facility] 2. expectant management 3. anticipate normal vaginal delivery
[2018-10-03 01:36] VITALS: BMI 23.8
[2018-10-03] MEDS ORDERED: ZOLPIDEM 5 MG TAB PO PRN (01:44)
[2018-10-03] MEDS ORDERED: WITCH HAZEL 1 EACH MED..PAD TOPICAL PRN (01:44)
[2018-10-03] MEDS ORDERED: BENZOCAINE/MENTHOL SPRAY 1 GM/SPRAY AEROSOL TOPICAL PRN (01:44)
[2018-10-03] MEDS ORDERED: diphenhydrAMINE 50 MG/ML 1 ML VIAL IVP PRN ×2 (01:44)
[2018-10-03] MEDS ORDERED: LANOLIN CREAM 5 GM TUBE TOPICAL PRN (01:44)
[2018-10-03] MEDS ORDERED: SIMETHICONE 80 MG CHEWABLE PO PRN (01:44)
[2018-10-03] MEDS ORDERED: ACETAMINOPHEN TAB 325 MG TAB PO PRN (01:44)
[2018-10-03] MEDS ORDERED: diphenhydrAMINE 50 MG CAP PO PRN (01:44)
[2018-10-03] MEDS ORDERED: HYDROCORTISONE 2.5% RECTAL CREAM 30 GM TUBE RECTAL PRN (01:44)
[2018-10-03] MEDS ORDERED: diphenhydrAMINE 25 MG CAP PO PRN (01:44)
--- NOTE | 2018-10-03 01:44 | P.PROBDLV ---
Vaginal Delivery Note - . Vaginal Delivery Note: 28 year old presents 38 weeks 2 days with spontaneous rupture of membranes at 1700 on 10/01/2018. She did present to [facility] until 2200 on 10/02/2018. She was grossly ruptured with meconium stained fluid. Her cervix is 5/80/2 and she was garcia every 2 - 5 minutes. heart tones 145 with moderate variability. She was admitted to [facility] given IV fluids and clindamycin for prolonged rupture. Epidural was given for pain management. Her cervix was completely dilated at 00 59 on 10/03/2018. When she started to feel the urge, She pushed, and delivered a viable female infant over intact perineum under epidural anesthesia at 1:28 AM. Head delivered OA, anterior shoulder delivered gentle downward guidance for by posterior shoulder and rest of body. Nose and mouth bulb suctioned, cord clamped and cut, infant placed mother's abdomen. Apgars 9, 9, weight 6 lbs. 8 oz. Placenta delivered spontaneously, intact with three-vessel cord at 1:31 AM. Vagina, cervix, and perineum were inspected. First-degree midline laceration was repaired with 3-0 Vicryl. Estimated blood loss 250 mL.
[2018-10-03] MEDS: OXYTOCIN 20 UNITS/1000 ML NS 1,000 ML IV SCH ×2 (01:59→02:55)
[2018-10-03] MEDS: IBUPROFEN 600 MG TAB PO PRN ×3 (02:54→20:53)
[2018-10-03 04:44] VITALS: RESP 16
[2018-10-03] MEDS ORDERED: CLINDAMYCIN 900 MG in DEXTROSE 5% IN WATER 50 ML IVPB SCH ×2 (06:41)
[2018-10-03] MEDS: SENNOSIDES-DOCUSATE SODIUM 1 EACH TAB PO SCH ×2 (07:57→20:53)
[2018-10-03] MEDS: HYDROcodone/APAP 5-325MG 1 EACH TAB PO PRN (16:28)
[2018-10-04] MEDS: HYDROcodone/APAP 5-325MG 1 EACH TAB PO PRN ×4 (00:07→18:58)
[2018-10-04] MEDS: SENNOSIDES-DOCUSATE SODIUM 1 EACH TAB PO SCH ×2 (12:28→23:50)
[2018-10-04] MEDS: IBUPROFEN 600 MG TAB PO PRN (23:50)
[2018-10-05] MEDS: HYDROcodone/APAP 5-325MG 1 EACH TAB PO PRN ×2 (01:48→10:39)
[2018-10-05] MEDS: SENNOSIDES-DOCUSATE SODIUM 1 EACH TAB PO SCH (10:39)
--- NOTE | 2018-10-05 11:34 | P.DS ---
Providers Date of admission: 10/02/18 22:33 Expected date of discharge: 10/05/18 Attending physician: Shimon Zimmerman Primary care physician: Stated None Hospital Course: Steffi is doing very well day 2. She is involuting, voiding and tolerating her diet. She voices no complaint. Vital signs are stable and afebrile. Heart regular, lungs clear, extremities are without pain. Abdomen soft firm and lochia is reported to be light. Assessment day 2. Plan discharged home follow up with me in 6 weeks. Prescription for [place] and Motrin are provided and all questions and discharge instructions were thoroughly reviewed. She is stable for discharge this time. [facility] due to a cleft palate. Patient Condition at Discharge: Poor Plan - Discharge Summary Discharge Rx Participant: Yes New Discharge Prescriptions: New Ibuprofen [Motrin] 600 mg PO Q6HR PRN #30 tab PRN Reason: Pain HYDROcodone/APAP 5-325MG [[place] 5-325] 1 tab PO Q4HR PRN #30 tab PRN Reason: Pain No Action Pnv No.95/Ferrous Fum/Folic AC [ Multivitamin Tablet] 1 tab PO DAILY Discharge Medication List Pnv No.95/Ferrous Fum/Folic AC [ Multivitamin Tablet] 1 tab PO DAILY 11/25/16 [History] HYDROcodone/APAP 5-325MG [[place] 5-325] 1 tab PO Q4HR PRN #30 tab 10/05/18 [Rx] Ibuprofen [Motrin] 600 mg PO Q6HR PRN #30 tab 10/05/18 [Rx] Follow up Appointment(s)/Referral(s): Shimon Zimmerman DO [Doctor of Osteopathic Medicine] - 6 Weeks Activity/Diet/Wound Care/Special Instructions: No heavy lifting, limit stairs and driving, and pelvic rest. If any high temperatures, heavy bleeding, or severe pain call my office Discharge Disposition: HOME SELF-CARE
[2018-10-05 16:57] VITALS: BP 109/66; PULSE 84; TEMP 98.1
== END 2018-10-05 23:10 | disposition home or self-care (01) | DRG 807 ==
LOC: FBPOP 22:16 → 4FBP 22:33
PROVIDERS: ADMIT Obstetrics & Gynecology; ATTEND Obstetrics & Gynecology
PROC: 10E0XZZ Delivery of Products of Conception, External Approach (ICD-10-PCS; principal; 2018-10-02)
PROC: 0HQ9XZZ Repair Perineum Skin, External Approach (ICD-10-PCS; 2018-10-02)
PROC: 00HU33Z Insertion of Infusion Device into Spinal Canal, Percutaneous Approach (ICD-10-PCS; 2018-10-02)
PROC: 3E0R3BZ Introduction of Anesthetic Agent into Spinal Canal, Percutaneous Approach (ICD-10-PCS; 2018-10-02)
DX: O42.90 Premature rupture of membranes, unspecified as to length of time between rupture and onset of labor, unspecified weeks of gestation (principal); Z37.0 Single live birth; O70.0 First degree perineal laceration during delivery; O77.0 Labor and delivery complicated by meconium in amniotic fluid; Z3A.38 38 weeks gestation of pregnancy; Z88.0 Allergy status to penicillin
CPT/HCPCS: 59025; 84112; 85025; 86850; 86900; 86901; 99213

== ENCOUNTER → 2020-02-10 | Outpatient (CLI) | payer OTHER | END | disposition home or self-care (01) | LOC: LABWHC1 15:12 | PROVIDERS: ATTEND Obstetrics & Gynecology | DX: N91.2 Amenorrhea, unspecified (principal) | CPT/HCPCS: 36415; 84702 ==

== ENCOUNTER 2023-04-17 01:34 | Emergency (ER) | payer OTHER ==
[2023-04-17] MEDS ORDERED: LIDOCAINE 4% PATCH TOPICAL STA (01:50)
[2023-04-17] MEDS ORDERED: MORPHINE SULFATE 4 MG/ML SYRINGE IVP STA (01:50)
[2023-04-17] MEDS ORDERED: SODIUM CHLORIDE 0.9% 500 ML 500 ML IV STA (01:51)
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
[2023-04-17 02:08] LABS: Basophils % (A) 0 %; Eosinophils # (A) 0.1 k/uL (0-0.7); Eosinophils % (A) 1 %; HCT 37.3 % (34.0-46.0); HGB 13.1 gm/dL (11.4-16.0); Lymphocytes # (A) 1.4 k/uL (1.0-4.8); Lymphocytes % (A) 8 %; MCH 32.3 pg (25.0-35.0); MCV 92.2 fL (80.0-100.0); Mean Platelet Volume 7.2; Monocytes # (A) 0.5 k/uL (0-1.0); Monocytes % (A) 3 %; Neutrophils # (A) 15.8 k/uL (1.3-7.7); Neutrophils % (A) 88 %; Platelet Count 465 k/uL (150-450); RBC 4.05 m/uL (3.80-5.40); RDW 13.1 % (11.5-15.5); WBC 17.9 k/uL (3.8-10.6)
[2023-04-17 02:18] LABS: African American GFR (CKD) >90 (>60 ml/min/1.73 sqM); Anion Gap 13 mmol/L; Blood Urea Nitrogen 7 mg/dL (7-17); Calcium 9.4 mg/dL (8.4-10.2); Carbon Dioxide 25 mmol/L (22-30); Chloride 100 mmol/L (98-107); Glucose 150 mg/dL (74-99); Non-African American GFR(CKD) >90 (>60 ml/min/1.73 sqM); Potassium 3.9 mmol/L (3.5-5.1); Sodium 138 mmol/L (137-145)
[2023-04-17] MEDS ORDERED: HYDROmorphone 0.5 MG/0.5 ML SYRINGE IVP STA ×3 (03:19→06:11)
[2023-04-17 03:39] VITALS: RESP 16
--- NOTE | 2023-04-17 04:00 | CT ---
EXAM: CT Thoracic Spine Without Intravenous Contrast CLINICAL HISTORY: ITS.REASON CT Reason: fall, pain TECHNIQUE: Axial computed tomography images of the thoracic spine without intravenous contrast. CTDI is 7 mGy and DLP is 347.5 mGy-cm. This CT exam was performed using one or more of the following dose reduction techniques: automated exposure control, adjustment of the mA and/or kV according to patient size, and/or use of iterative reconstruction technique. COMPARISON: No relevant prior studies available. FINDINGS: Vertebrae: No acute fracture. No subluxation. Discs/spinal canal/neural foramina: No spinal canal stenosis. Soft tissues: Unremarkable. IMPRESSION: No acute findings. EXAM: CT Lumbar Spine Without Intravenous Contrast CLINICAL HISTORY: ITS.REASON CT Reason: fall, pain TECHNIQUE: Axial computed tomography images of the lumbar spine without intravenous contrast. CTDI is 7 mGy and DLP is 350 mGy-cm. This CT exam was performed using one or more of the following dose reduction techniques: automated exposure control, adjustment of the mA and/or kV according to patient size, and/or use of iterative reconstruction technique. COMPARISON: No relevant prior studies available. FINDINGS: Vertebrae: Acute right L3, L4, L5 transverse process fractures. No vertebral body height loss. No subluxation. Discs/spinal canal/neural foramina: No significant spinal canal stenosis. Soft tissues: Unremarkable. IMPRESSION: Acute right L3, L4, L5 transverse process fractures.
[2023-04-17] MEDS ORDERED: DEXAMETHASONE SOD PHOSPHATE 10 MG/ML 1 ML VIAL IVP STA (04:46)
[2023-04-17] MEDS ORDERED: ACET/COD 300 MG/30 MG STARTER PACK 6 TAB BTL PO STA (05:34)
--- NOTE | 2023-04-17 06:02 | XR ---
EXAM: XR Pelvis, 1 or 2 Views CLINICAL HISTORY: ITS.REASON XR Reason: fall, pain TECHNIQUE: Frontal view of the pelvis. COMPARISON: No relevant prior studies available. IMPRESSION: 1. Evaluation of the sacrum is limited by overlying bowel gas. 2. No evidence of acutely displaced fracture or dislocation within the pelvis. Consider cross-sectional imaging. 3. Pubic symphysis degenerative changes which may be due to patient's prior obstetrical history. 4. IUD in situ.
--- NOTE | 2023-04-17 06:03 | XR ---
EXAM: XR Chest, 2 Views CLINICAL HISTORY: ITS.REASON XR Reason: fall, pain TECHNIQUE: Frontal and lateral views of the chest. COMPARISON: No relevant prior studies available. IMPRESSION: 1. No acute cardiopulmonary abnormality.
[2023-04-17 06:41] VITALS: BP 136/87; PULSE 99; TEMP 98.7
== END 2023-04-17 06:20 | disposition home or self-care (01) ==
LOC: EC 01:34
DX: S32.038A Other fracture of third lumbar vertebra, initial encounter for closed fracture (principal); S32.048A Other fracture of fourth lumbar vertebra, initial encounter for closed fracture; S32.058A Other fracture of fifth lumbar vertebra, initial encounter for closed fracture; Z88.0 Allergy status to penicillin; W17.89XA Other fall from one level to another, initial encounter; W22.09XA Striking against other stationary object, initial encounter
CPT/HCPCS: 99285; 96374; 96375 ×2; 96376 ×2; 36415; 80048; 85025; 72170; 71046; 72128; 72131; J2270; J1100; J1170; 99284

== ENCOUNTER 2023-04-20 19:14 | Emergency (ER) | payer OTHER ==
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
[2023-04-20 19:59] VITALS: BP 143/92; PULSE 108; RESP 18; TEMP 98
--- NOTE | 2023-04-20 20:48 | XR ---
EXAMINATION TYPE: XR cervical spine comp DATE OF EXAM: 04/20/2023 8:23 PM CLINICAL INDICATION:Female, 33 years old with history of neck pain; COMPARISON: 07/23/2014. TECHNIQUE: The cervical spine was imaged in frontal, lateral, odontoid and bilateral oblique. FINDINGS: The osseous structures show normal alignment without evidence of an acute fracture. Minimal vertebral body osteophytes and facet joint arthropathy. The intervertebral disk spaces are preserved. Pedicles are intact. Soft tissues are within normal limits. The odontoid appears intact. IMPRESSION: 1. No fracture or dislocation. 2. Minimal degenerative disc disease changes of the cervical spine.
--- NOTE | 2023-04-20 20:59 | XR ---
EXAMINATION TYPE: XR lumbar spine 2 or 3V DATE OF EXAM: 04/20/2023 8:25 PM CLINICAL INDICATION:Female, 33 years old with history of Pain; COMPARISON: 07/23/2014. TECHNIQUE: XR lumbar spine 2 or 3V - Frontal, lateral and coned in L5-S1 lateral views of the spine. FINDINGS: No evidence of any acute osseous pathology. No evidence of loss of vertebral body height i s seen. There is normal alignment of the lumbar vertebral bodies. Minimal degeneration with disc spac e narrowing and osteophyte formation. IMPRESSION: 1. No acute fracture. 2. Minimal multilevel disc degeneration.
[2023-04-20] MEDS ORDERED: KETOROLAC 15 MG/ML 1 ML VIAL IM STA (21:20)
[2023-04-20] MEDS ORDERED: LIDOCAINE 4% PATCH TOPICAL ONE (21:20)
[2023-04-20] MEDS ORDERED: ACET/COD 300 MG/30 MG STARTER PACK 6 TAB BTL PO STA (21:21)
== END 2023-04-20 22:00 | disposition home or self-care (01) ==
LOC: EC 19:14
DX: M51.36 Other intervertebral disc degeneration, lumbar region (principal); Z88.0 Allergy status to penicillin
CPT/HCPCS: 72050; 72100; 99283; 96372; J1885